=== PATIENT | female | born 1950 | race Caucasian/White ===

== ENCOUNTER 2019-03-26 21:43 | Emergency (ER) | payer MEDICARE, OTHER ==
[2019-03-26] MEDS ORDERED: Ketorolac 0.5% Ophth Soln 5 ML Bottle EYELF ONE (21:44)
--- NOTE | 2019-03-26 22:07 | EDM.PDOC ---
ED HPI GENERAL MEDICAL PROBLEM - General Chief Complaint: ENT Problem Stated Complaint: LT EYE PAIN Time Seen by Provider: 03/26/19 22:04 Source of Information: Reports: Patient, Family History Limitations: Reports: No Limitations - History of Present Illness INITIAL COMMENTS - FREE TEXT/NARRATIVE: 68 y.o.w.f from the [facility], came with her SO to the ED because pt forgot her eye drops -Ketorolac 1 drop left eye bid-at home. Pt had cataract surgery on 03/17/2019. Pt's noticed redness at her left conative as well. No N/V/ D no blurred vision no CP no SOB or any other acute med issues. BP 152/73 RR 18 Pulse ox 98% on RA Pulse 71 Temp 36.6 Onset Date: 03/26/19 Onset Time: 15:00 Duration: Hour(s):, Intermittent Location: Reports: Face Quality: Reports: Dull Severity: Mild Improves with: Reports: Medication Worsens with: Reports: Other Context: Reports: Other (S/P Catarct surgery 03/17/2019) Associated Symptoms: Reports: No Other Symptoms Left Eye Pain Score (Numeric/FACES): 7 - Related Data Allergies Allergy/AdvReac Type Severity Reaction Status Date / Time Sulfa (Sulfonamide Allergy Rash Verified 03/26/19 22:09 Antibiotics) Home Meds: Home Meds . [Unable to Verify Home Med List] 03/26/19 [History] Gentamicin [Garamycin 0.3% Ophth Soln] 5 ml EYEBOTH TID #1 bottle 03/26/19 [Rx] ED ROS GENERAL - Review of Systems Review Of Systems: See Below Constitutional: Reports: No Symptoms HEENT: Reports: No Symptoms Respiratory: Reports: No Symptoms Cardiovascular: Reports: No Symptoms Endocrine: Reports: No Symptoms GI/Abdominal: Reports: No Symptoms : Reports: No Symptoms Musculoskeletal: Reports: No Symptoms Skin: Reports: No Symptoms Neurological: Reports: No Symptoms Psychiatric: Reports: No Symptoms Hematologic/Lymphatic: Reports: No Symptoms Immunologic: Reports: No Symptoms ED EXAM GENERAL W FULL EYE - Physical Exam Exam: See Below Exam Limited By: No Limitations General Appearance: Alert, WD/WN, No Apparent Distress Eye Exam: Left Eye: Conjunctival Injection Eyelids: Bilateral: Normal Appearance Conjunctiva & Sclera: Left: Injected Extraocular Movements: Bilateral: Intact Pupils: Normal Accommodation Pupillary Size: Bilateral: 3 mm Pupillary Reaction: Bilateral: Brisk Anterior Chamber: Bilateral: Normal Appearance Ears: Normal External Exam Nose: Normal Inspection, Normal Mucosa, No Blood Throat/Mouth: Normal Inspection, Normal Lips, Normal Voice, No Airway Compromise Head: Atraumatic, Normocephalic Neck: Normal Inspection, Supple, Non-Tender, Full Range of Motion Respiratory/Chest: No Respiratory Distress, Lungs Clear, Normal Breath Sounds Cardiovascular: Normal Peripheral Pulses, Regular Rate, Rhythm, No Edema, No Gallop, No Rub GI/Abdominal: Normal Bowel Sounds, Soft, Non-Tender, No Organomegaly, No Abnormal Bruit, No Mass, Pelvis Stable (Male) Exam: No Hernia (Female) Exam: Deferred Rectal (Males) Exam: Deferred Rectal (Female) Exam: Deferred Back Exam: Normal Inspection, Full Range of Motion Extremities: Normal Inspection Neurological: Alert, Oriented, CN II-XII Intact, Normal Cognition, Normal Gait, No Motor/Sensory Deficits Psychiatric: Normal Affect, Normal Mood Skin Exam: Warm, Dry, Intact, Normal Color, No Rash Lymphatic: No Adenopathy Course - Vital Signs Text/Narrative:: 68 y.o.w.f from the [facility], came with her SO to the ED because pt forgot her eye drops -Ketorolac 1 drop left eye bid-at home. Pt had cataract surgery on 03/17/2019. Pt's noticed redness at her left conative as well. No N/V/ D no blurred vision no CP no SOB or any other acute med issues. BP 152/73 RR 18 Pulse ox 98% on RA Pulse 71 Temp 36.6 PE: WNWD W F with conjunctival injection left eye. Visual acuity not performed Imaging/Labs: Not indicated Impression: Meds refill, left conjunctivitis (bacterial vs viral) Tx: Ketorolac 1 drop left eye QID as per Eye doctor's advice. Reexam: Pt was doing fine in te ED Plan: D/C with instructions Last Recorded V/S: Last Vital Signs Temp 36.4 C 03/26/19 21:45 Pulse 71 03/26/19 21:45 Resp 18 03/26/19 21:45 BP 152/73 H 03/26/19 21:45 Pulse Ox 98 03/26/19 21:45 Departure - Departure Time of Disposition: 22:05 Disposition: Home, Self-Care 01 Condition: Good Clinical Impression: Medication refill Conjunctivitis Qualifiers: Conjunctivitis type: acute Acute conjunctivitis type: unspecified Laterality: left Qualified Code(s): H10.32 - Unspecified acute conjunctivitis, left eye - Discharge Information Prescriptions: Gentamicin [Garamycin 0.3% Ophth Soln] 5 ml EYEBOTH TID #1 bottle Referrals: PCP,Not In Area [Primary Care Provider] - Forms: ED Department Discharge Additional Instructions: Please take the meds as recommended, please f/u, come back if your symptoms get worse acutely
== END 2019-03-26 22:15 | disposition home or self-care (01) ==
LOC: FB.ED 21:43
DX: H10.32 Unspecified acute conjunctivitis, left eye (principal); Z76.0 Encounter for issue of repeat prescription; Z88.2 Allergy status to sulfonamides
CPT/HCPCS: 99282; A9270